=== PATIENT | female | born 1975 | race Caucasian/White ===

== ENCOUNTER 2022-03-02 15:34 | Outpatient (CLI) | payer BC ==
[2022-03-02 16:10] LABS: #Eosinphils 0.2 10x3/uL (0.0-0.5); #Monocytes 0.4 10x3/uL (0.0-1.1); #Neutrophils 3.7 10x3/uL (1.5-8.4); %Basophils 0.6 % (0.0-2.0); %Eosinophils 2.5 % (0.0-6.0); %Lymphocytes 32.8 % (18.0-47.0); %Monocytes 6.1 % (0.0-10.0); %Neutrophils 57.8 % (40.0-75.0); Hemoglobin 12.9 g/dL (12.0-15.5); Mean Corpuscular HGB CONC 33.1 g/dL (32.0-36.0); Mean Corpuscular Hemoglobin 30.9 pg (27.0-33.0); Mean Corpuscular Volume 93.3 fl (81.6-98.3); Mean Platelet Volume 10.5 fl (7.4-10.4); Platelet Count 212 10x3/uL (150-450); RBC Distribution Width 13.2 % (11.5-14.5); Red Blood Cell (RBC) Count 4.18 10x6/uL (3.90-5.03); White Blood Cell (WBC) Count 6.4 10x3/uL (3.5-10.5)
[2022-03-02 16:39] LABS: Anion Gap 12 mmol/L (10-20); BUN (Urea Nitrogen) 16 mg/dL (7.0-18.7); Calc. Creatinine Clearance 0 mL/min (70-130); Calcium 9.2 mg/dL (7.8-10.44); Carbon Dioxide 27 mmol/L (22-29); Chloride 103 mmol/L (98-107); Estimated GFR 109; Glucose 106 mg/dL (70-105); Potassium 4.1 mmol/L (3.5-5.1); Sodium 138 mmol/L (136-145)
== END 2022-03-02 15:35 | disposition home or self-care (01) ==
LOC: LABBT 15:34
PROVIDERS: ATTEND Orthopaedic Surgery
DX: Z01.812 Encounter for preprocedural laboratory examination (principal); M75.102 Unspecified rotator cuff tear or rupture of left shoulder, not specified as traumatic; Z20.822 Contact with and (suspected) exposure to COVID-19
CPT/HCPCS: 80048; 85025; 87811

== ENCOUNTER 2022-03-05 07:49 | Day surgery (SDC) | payer BC ==
[2022-03-03 15:48] VITALS: BMI 21.8
[2022-03-05] MEDS ORDERED: Fentanyl 100 MCG/2 ML VIAL ONE (08:56)
[2022-03-05] MEDS ORDERED: Midazolam HCl 2 mg/2 ml Vial ONE (08:56)
[2022-03-05] MEDS ORDERED: Scopolamine 1.5 mg/72 hour Patch ONE (08:58)
[2022-03-05] MEDS ORDERED: Xylocaine 1% w/ Epi 1:100K 10 ML VIAL ONE (09:34)
[2022-03-05] MEDS ORDERED: Sodium Chloride 0.9% 100 ML ONE (09:44)
[2022-03-05] MEDS ORDERED: CEFAZOLIN 2 GM VIAL ONE (09:44)
[2022-03-05] MEDS ORDERED: Lidocaine 1% PF 5 ML VIAL ONE (09:57)
[2022-03-05] MEDS ORDERED: Bupivacaine HCl 0.5%/Epinephrine 1:200,000/PF 30 ml Vial ONE (09:57)
[2022-03-05] MEDS ORDERED: Dexamethasone 20 MG/5 ML VIAL ONE (09:57)
[2022-03-05] MEDS ORDERED: Ondansetron PF 4 MG/2 ML Vial ONE (09:57)
[2022-03-05] MEDS ORDERED: PROPOFOL 200 MG/20 ML VIAL ONE (09:57)
[2022-03-05] MEDS ORDERED: Glycopyrrolate 0.2 MG/ML 5 ML SYRINGE ONE (09:57)
[2022-03-05] MEDS ORDERED: Rocuronium Bromide 10 MG/ML (10ML VIAL) ONE (09:57)
[2022-03-05] MEDS ORDERED: Ketorolac Tromethamine 30 MG/ML VIAL IVP PRN (11:00)
[2022-03-05] MEDS ORDERED: Promethazine HCl 25 MG/ML VIAL IM PRN (11:00)
[2022-03-05] MEDS ORDERED: Ondansetron PF 4 MG/2 ML Vial IVP PRN (11:00)
[2022-03-05] MEDS ORDERED: Zolpidem Tartrate 5 MG TAB PO PRN (11:00)
[2022-03-05] MEDS ORDERED: HYDROcodone/Acetaminophen 5/325 mg Tablet PO PRN ×2 (11:00)
[2022-03-05] MEDS ORDERED: Ropivacaine 0.2% 550 ML 550 ML NERVE BLCK SCH (11:00)
[2022-03-05] MEDS ORDERED: traMADol HCl 50 MG TAB PO PRN ×2 (11:00)
== END 2022-03-05 14:27 | disposition home or self-care (01) ==
LOC: SDC 07:49
PROVIDERS: ATTEND Orthopaedic Surgery
PROC: 3E0T3BZ Introduction of Anesthetic Agent into Peripheral Nerves and Plexi, Percutaneous Approach (ICD-10-PCS; principal; 2022-03-05)
PROC: 0LS40ZZ Reposition Left Upper Arm Tendon, Open Approach (ICD-10-PCS; principal; 2022-03-05)
PROC: 0LU247Z Supplement Left Shoulder Tendon with Autologous Tissue Substitute, Percutaneous Endoscopic Approach (ICD-10-PCS; 2022-03-05)
PROC: 0RNK4ZZ Release Left Shoulder Joint, Percutaneous Endoscopic Approach (ICD-10-PCS; 2022-03-05)
PROC: 0LQ24ZZ Repair Left Shoulder Tendon, Percutaneous Endoscopic Approach (ICD-10-PCS; 2022-03-05)
DX: M75.102 Unspecified rotator cuff tear or rupture of left shoulder, not specified as traumatic (principal); M25.312 Other instability, left shoulder; M25.812 Other specified joint disorders, left shoulder; J45.909 Unspecified asthma, uncomplicated; K58.9 Irritable bowel syndrome, unspecified; Z79.899 Other long term (current) drug therapy; Z86.16 Personal history of COVID-19
CPT/HCPCS: A4306; C1713; J0690; J2250; J2795; J3010; J3490

== ENCOUNTER 2024-02-10 09:45 | Outpatient (CLI) | payer BC | END 2024-02-10 09:46 | disposition home or self-care (01) | LOC: RAD 09:45 | PROVIDERS: ATTEND Surgery | DX: M54.50 Low back pain, unspecified (principal) | CPT/HCPCS: 72120 ==